=== PATIENT | male | born 2000 | race Caucasian/White ===

== ENCOUNTER 2025-05-17 20:39 | Emergency (ER) | payer OTHER ==
[2025-05-17 20:44] VITALS: BP 123/92; PULSE 65; RESP 18; TEMP 97.9; BMI 35.2
[2025-05-18 00:39] LABS: HCV DIAGNOSTIC IN-HOUSE W/RFLX NON-REACTIVE (NONREACTIVE)
[2025-05-18 00:43] LABS: HIV INTERPRETATION NEGATIVE (NEGATIVE)
== END 2025-05-17 22:04 | disposition home or self-care (01) ==
LOC: FER 20:39
DX: R07.89 Other chest pain (principal)
CPT/HCPCS: 36415; 71046-TC-FY; 86803; 87389; 93005; 93010; 99285-25